=== PATIENT | female | born 1990 | race Two or more races ===

== ENCOUNTER 2022-04-12 17:24 | Observation (INO) | payer MEDICAID | END 2022-04-12 19:29 | disposition home or self-care (01) | LOC: LDRP 17:24 | PROVIDERS: ADMIT Obstetrics & Gynecology; ATTEND Obstetrics & Gynecology | DX: O62.9 Abnormality of forces of labor, unspecified (principal); Z3A.37 37 weeks gestation of pregnancy | CPT/HCPCS: 59025; 94760 ==